=== PATIENT | female | born 1950 | race Caucasian/White ===

== ENCOUNTER 2017-11-08 18:51 | Emergency (ER) | payer OTHER, MEDICARE ==
[~2017-11-08] VITALS: Ht 165.1 cm; Wt 73.9 kg
[~2017-11-08 18:51] MED LIST: ALBU90OI6 INH; AMIT10 PO; AMLO10 PO; AMLO5 PO; ANASTROZOLE PO; ASCO500 PO; ASPI325 PO; ASPI81EC; ATEN50; ATEN50 PO; ATOR20 PO; ATOR40TA; ATOR40TA PO; BUPR150T2; CALCA500CH PO; CALCAVITD PO; CHOL10002 PO; CITA20 PO; CLOP75 PO; CYCL10; CYCL10 PO; ERGO50000 PO; ESCI10; ESCI10 PO; FISH1000 PO; FLUSAL2505 IH; HYDMOR4 PO; HYDMOR8 PO; IBAN2.5 PO; IBUP800; INDO25 PO; LEVO750 PO; LISI20; LISI20 PO; LORA.5 PO; METCAR500 PO; MIRT15; MIRT15 PO; MIRT15ST MM; MULVITA PO; MULVITB&C PO; OMEGA-3; ONDA4ODT MM; PREG50; PREG50 PO; Percocet 5-3251 EACH PO; Prednisone10 MG PO; RANO500T PO; TIOT18 INH
[2017-11-08] MEDS ORDERED: LISI20 PO (21:32)
[2017-11-08] MEDS ORDERED: DULO30 PO (21:32)
[2017-11-08] MEDS ORDERED: STIOLTO RESPIMAT4 GM INH (21:32)
[2017-11-08] MEDS ORDERED: ATOR20 PO (21:32)
[2017-11-08] MEDS ORDERED: PREG50 PO (21:33)
[2017-11-08] MEDS ORDERED: ATEN50 PO (21:33)
[2017-11-08] MEDS ORDERED: METCAR500 PO (21:33)
[2017-11-08] MEDS ORDERED: ANASTROZOLE5 GM (21:33)
[2017-11-08] MEDS ORDERED: ALBU90OI6 INH (21:34)
[2017-11-08] MEDS ORDERED: VARE1 PO (21:34)
== END 2017-11-08 21:19 | disposition home or self-care (01) ==
LOC: ER 18:51
DX: S16.1XXA Strain of muscle, fascia and tendon at neck level, initial encounter (principal); V89.2XXA Person injured in unspecified motor-vehicle accident, traffic, initial encounter; Z88.5 Allergy status to narcotic agent; Z79.899 Other long term (current) drug therapy; Z79.82 Long term (current) use of aspirin; I25.2 Old myocardial infarction; J44.9 Chronic obstructive pulmonary disease, unspecified; Z87.891 Personal history of nicotine dependence
CPT/HCPCS: 70450; 72100; 72125; 99284

== ENCOUNTER 2017-11-22 06:54 | Day surgery (SDC) | payer MEDICARE, OTHER ==
[~2017-11-22] VITALS: Ht 165.1 cm; Wt 74.1 kg
[~2017-11-22 06:54] MED LIST changes: +ANASTROZOLE5 GM; +DULO30 PO; +DULO60 PO; +MULTI VITAMIN1 EACH PO; +Nitrostat0.4 MG SL; +Percocet 7.5-31 EACH PO; +STIOLTO RESPIMAT4 GM INH; +VARE1 PO
[2017-11-22] MEDS ORDERED: CLOP75 PO (11:27)
== END 2017-11-22 14:00 | disposition home or self-care (01) ==
LOC: MHTC 06:54
PROC: 02703ZZ Dilation of Coronary Artery, One Artery, Percutaneous Approach (ICD-10-PCS; principal; 2017-11-22)
PROC: B240ZZ3 Ultrasonography of Single Coronary Artery, Intravascular (ICD-10-PCS; principal; 2017-11-22)
PROC: 027034Z Dilation of Coronary Artery, One Artery with Drug-eluting Intraluminal Device, Percutaneous Approach (ICD-10-PCS; principal; 2017-11-22)
DX: I25.110 Atherosclerotic heart disease of native coronary artery with unstable angina pectoris (principal); Z87.891 Personal history of nicotine dependence; E78.5 Hyperlipidemia, unspecified; I10 Essential (primary) hypertension; Z95.1 Presence of aortocoronary bypass graft
CPT/HCPCS: 85347; 92937; 92978; 93005; 93010; 93455; 99152; 99153; C1725; C1753; C1769; C1874; J1644; J2250; J2720; J3010; J7030; Q9967

== ENCOUNTER 2018-08-16 10:22 | Emergency (ER) | payer MEDICARE, OTHER ==
[~2018-08-16] VITALS: Ht 165.1 cm; Wt 69.8 kg
[2018-08-16 10:55] LABS: BASOPHILS ABSOLUTE AUTO 0.05 K/mm3 (0.00-0.23); BASOPHILS PERCENT AUTO 1 % (0-2); EOSINOPHILS ABSOLUTE AUTO 0.07 K/mm3 (0.00-0.68); EOSINOPHILS PERCENT AUTO 1 % (0-6); Hematocrit 45.5 % (33.0-51.0); Hemoglobin 15.4 g/dL (11.5-16.0); IMMATURE GRAN ABSOLUTE AUTO 0.02 K/mm3 (0.00-0.10); IMMATURE GRAN PERCENT AUTO 0 % (0-1); LYMPHOCYTES ABSOLUTE AUTO 1.87 K/mm3 (0.84-5.20); LYMPHOCYTES PERCENT AUTO 22 % (21-46); MONOCYTES ABSOLUTE AUTO 0.55 K/mm3 (0.16-1.47); MONOCYTES PERCENT AUTO 7 % (4-13); Mean Corpuscular HGB 31.9 pg (26.0-34.0); Mean Corpuscular HGB Conc 33.8 g/dL (31.5-36.5); Mean Corpuscular Volume 94 fL (80-100); NEUTROPHILS ABSOLUTE AUTO 5.77 K/mm3 (1.96-9.15); NEUTROPHILS PERCENT AUTO 69 % (41-73); Platelet Count 246 K/mm3 (150-400); RDW Coefficient Variation 11.7 % (11.7-14.2); RDW Standard Deviation 40.6 fL (35.1-46.3); Red Blood Cell Count 4.83 M/mm3 (3.80-5.20); White Blood Cell Count 8.33 K/mm3 (4.00-11.30)
[2018-08-16 11:13] LABS: Alanine Aminotransfer (ALT/SGP 19 U/L (12-78); Albumin/Globulin Ratio 1.1 (0.8-1.8); Alk Phos 72 U/L (50-136); Anion Gap 12 mmol/L (6-16); Aspartate Aminotrans (AST/SGOT 23 U/L (12-37); Bilirubin, Total 0.5 mg/dL (0.1-1.0); Blood Urea Nitrogen 11 mg/dL (8-24); CO2, Blood 20 mmol/L (21-32); Calcium, Blood 9.4 mg/dL (8.5-10.1); Chloride, Blood 107 mmol/L (98-108); Globulin, Blood 3.8 g/dL (2.2-4.0); Glomerular Filtration Rate >60 (60-); Glucose, Blood 193 mg/dL (70-99); Potassium, Blood 3.7 mmol/L (3.5-5.5); Sodium, Blood 139 mmol/L (136-145); Total Protein, Blood 7.8 g/dL (6.4-8.2)
[2018-08-16] MEDS ORDERED: Motion Sickness25 M1 PO (12:57)
[2018-08-16] MEDS ORDERED: ONDA4ODT MM (12:57)
== END 2018-08-16 13:15 | disposition home or self-care (01) ==
LOC: ER 10:22
PROVIDERS: Emergency Medicine
DX: H81.399 Other peripheral vertigo, unspecified ear (principal); Z88.5 Allergy status to narcotic agent; Z79.899 Other long term (current) drug therapy; Z79.82 Long term (current) use of aspirin; I25.2 Old myocardial infarction; J44.9 Chronic obstructive pulmonary disease, unspecified; I10 Essential (primary) hypertension; Z87.891 Personal history of nicotine dependence
CPT/HCPCS: 36415; 80053; 85025; 93005; 93010; 96372; 99284-25; J1885

== ENCOUNTER 2019-02-06 17:44 | Emergency (ER) | payer MEDICARE, OTHER ==
[~2019-02-06] VITALS: Ht 165.1 cm; Wt 67.6 kg
[~2019-02-06 17:44] MED LIST changes: +Motion Sickness25 M1 PO
[2019-02-06 18:40] LABS: BASOPHILS ABSOLUTE AUTO 0.07 K/mm3 (0.00-0.23); BASOPHILS PERCENT AUTO 1 % (0-2); EOSINOPHILS ABSOLUTE AUTO 0.15 K/mm3 (0.00-0.68); EOSINOPHILS PERCENT AUTO 2 % (0-6); Hematocrit 41.9 % (33.0-51.0); Hemoglobin 14.1 g/dL (11.5-16.0); IMMATURE GRAN ABSOLUTE AUTO 0.01 K/mm3 (0.00-0.10); IMMATURE GRAN PERCENT AUTO 0 % (0-1); LYMPHOCYTES ABSOLUTE AUTO 2.66 K/mm3 (0.84-5.20); LYMPHOCYTES PERCENT AUTO 32 % (21-46); MONOCYTES ABSOLUTE AUTO 0.86 K/mm3 (0.16-1.47); MONOCYTES PERCENT AUTO 10 % (4-13); Mean Corpuscular HGB 32.3 pg (26.0-34.0); Mean Corpuscular HGB Conc 33.7 g/dL (31.5-36.5); Mean Corpuscular Volume 96 fL (80-100); Mean Platelet Volume 10.7 fL (9.1-12.4); NEUTROPHILS ABSOLUTE AUTO 4.61 K/mm3 (1.96-9.15); NEUTROPHILS PERCENT AUTO 55 % (41-73); Platelet Count 209 K/mm3 (150-400); RDW Coefficient Variation 12.7 % (11.7-14.2); RDW Standard Deviation 45.2 fL (35.1-46.3); Red Blood Cell Count 4.36 M/mm3 (3.80-5.20); White Blood Cell Count 8.36 K/mm3 (4.00-11.30)
[2019-02-06 18:59] LABS: Alanine Aminotransfer (ALT/SGP 16 U/L (12-78); Albumin, Blood 3.9 g/dL (3.4-5.0); Albumin/Globulin Ratio 1.1 (0.8-1.8); Alk Phos 74 U/L (50-136); Anion Gap 4 mmol/L (6-16); Aspartate Aminotrans (AST/SGOT 22 U/L (12-37); Bilirubin, Total 0.3 mg/dL (0.1-1.0); Blood Urea Nitrogen 12 mg/dL (8-24); Bun/Creatinine Ratio 22.1 (12.0-20.0); CO2, Blood 27 mmol/L (21-32); Calcium, Blood 10.5 mg/dL (8.5-10.1); Chloride, Blood 111 mmol/L (98-108); Creatinine, Blood 0.54 mg/dL (0.40-1.00); Globulin, Blood 3.5 g/dL (2.2-4.0); Glomerular Filtration Rate >60 (60-); Glucose, Blood 122 mg/dL (70-99); Potassium, Blood 3.6 mmol/L (3.5-5.5); Sodium, Blood 142 mmol/L (136-145); Total Protein, Blood 7.4 g/dL (6.4-8.2)
[2019-02-06 20:24] LABS: Bilirubin, Urine Neg (Neg); Blood, Urine Neg (Neg); Glucose Qualitative, Urine Neg (Neg); Ketones, Urine Neg (Neg); Leukocyte Esterase, Urine 1+ (Neg); Nitrite, Urine Neg (Neg); Protein, Urine Neg (Neg); Source, Urine Clean Catch; Specific Gravity, Urine 1.015 (1.003-1.022); Urobilinogen, Urine NORM (Normal)
[2019-02-06 20:42] LABS: Appearance, Urine Hazy (Clear); Color, Urine Yellow (P-Yellow)
[2019-02-06 20:44] LABS: Amorphous Mod (0-Heavy); Bacteria Mod /hpf; Red Blood Cells, Urine Not Seen /hpf (0-2); Squamous Epithelial Cells Rare /hpf (Few)
== END 2019-02-06 22:40 | disposition home or self-care (01) ==
LOC: ER 17:44
PROVIDERS: Emergency Medicine
DX: K59.00 Constipation, unspecified (principal); J44.9 Chronic obstructive pulmonary disease, unspecified; I25.2 Old myocardial infarction; Z87.442 Personal history of urinary calculi; Z88.5 Allergy status to narcotic agent; Z79.899 Other long term (current) drug therapy; Z79.82 Long term (current) use of aspirin; Z79.02 Long term (current) use of antithrombotics/antiplatelets; Z85.3 Personal history of malignant neoplasm of breast; Z85.820 Personal history of malignant melanoma of skin; Z87.891 Personal history of nicotine dependence
CPT/HCPCS: 36415; 74176; 80053; 81001; 83690; 83735; 85025; 87086; 93005; 93010; 99284-25

== ENCOUNTER 2019-05-30 07:43 | Observation (INO) | payer MEDICARE, OTHER ==
[~2019-05-30] VITALS: Ht 165.1 cm; Wt 64.4 kg
[~2019-05-30 07:43] MED LIST changes: -DULO60 PO; -Percocet 7.5-31 EACH PO; -STIOLTO RESPIMAT4 GM INH
[2019-05-30 08:30] LABS: BASOPHILS ABSOLUTE AUTO 0.04 K/mm3 (0.00-0.23); BASOPHILS PERCENT AUTO 1 % (0-2); EOSINOPHILS ABSOLUTE AUTO 0.12 K/mm3 (0.00-0.68); EOSINOPHILS PERCENT AUTO 2 % (0-6); Hematocrit 40.4 % (33.0-51.0); Hemoglobin 13.1 g/dL (11.5-16.0); IMMATURE GRAN ABSOLUTE AUTO 0.02 K/mm3 (0.00-0.10); IMMATURE GRAN PERCENT AUTO 0 % (0-1); LYMPHOCYTES ABSOLUTE AUTO 1.13 K/mm3 (0.84-5.20); LYMPHOCYTES PERCENT AUTO 17 % (21-46); MONOCYTES ABSOLUTE AUTO 0.67 K/mm3 (0.16-1.47); MONOCYTES PERCENT AUTO 10 % (4-13); Mean Corpuscular HGB 31.8 pg (26.0-34.0); Mean Corpuscular HGB Conc 32.4 g/dL (31.5-36.5); Mean Corpuscular Volume 98 fL (80-100); Mean Platelet Volume 10.6 fL (9.1-12.4); NEUTROPHILS ABSOLUTE AUTO 4.87 K/mm3 (1.96-9.15); NEUTROPHILS PERCENT AUTO 71 % (41-73); Platelet Count 138 K/mm3 (150-400); RDW Coefficient Variation 12.2 % (11.7-14.2); RDW Standard Deviation 44.2 fL (35.1-46.3); Red Blood Cell Count 4.12 M/mm3 (3.80-5.20); White Blood Cell Count 6.85 K/mm3 (4.00-11.30)
[2019-05-30 08:51] LABS: Alanine Aminotransfer (ALT/SGP 13 U/L (12-78); Albumin, Blood 3.2 g/dL (3.4-5.0); Albumin/Globulin Ratio 0.8 (0.8-1.8); Alk Phos 72 U/L (50-136); Anion Gap 6 mmol/L (6-16); Aspartate Aminotrans (AST/SGOT 21 U/L (12-37); Bilirubin, Total 0.3 mg/dL (0.1-1.0); Blood Urea Nitrogen 9 mg/dL (8-24); Bun/Creatinine Ratio 17.9 (12.0-20.0); CO2, Blood 27 mmol/L (21-32); Calcium, Blood 8.4 mg/dL (8.5-10.1); Chloride, Blood 106 mmol/L (98-108); Globulin, Blood 3.8 g/dL (2.2-4.0); Glomerular Filtration Rate >60 (60-); Glucose, Blood 99 mg/dL (70-99); Potassium, Blood 3.4 mmol/L (3.5-5.5); Sodium, Blood 139 mmol/L (136-145); Troponin I <0.015 ng/mL (0.000-0.040)
[2019-05-30] MEDS ORDERED: AMLODIPINE BESYL5 MG PO (12:14)
[2019-05-30] MEDS ORDERED: Robaxin750 MG PO (12:15)
[2019-05-30] MEDS ORDERED: ATEN50 PO (12:16)
[2019-05-30] MEDS ORDERED: ALBU90OI6 INH (12:17)
[2019-05-30] MEDS ORDERED: CLOP75 PO (12:17)
[2019-05-30] MEDS ORDERED: PREG50 PO (12:18)
[2019-05-30] MEDS ORDERED: DULO30 PO (12:19)
[2019-05-30] MEDS ORDERED: LISI20 PO (12:20)
[2019-05-30] MEDS ORDERED: STIOLTO RESPIMAT4 GM INH (12:20)
[2019-05-30] MEDS ORDERED: ATOR20 PO (12:20)
[2019-05-30] MEDS ORDERED: Percocet 7.5-31 EACH PO (12:21)
[2019-05-30] MEDS ORDERED: ASPI325EC PO (12:27)
[2019-05-30 12:33] LABS: Influenza A Negative (NEGATIVE); Influenza B Negative (NEGATIVE)
--- NOTE | 2019-05-30 15:30 | NUR ---
PT ARRIVED TO ROOM FROM ED AND TRANSFERRED SELF TO BED. SOB WITH ACTIVITY BUT RECOVERS QUICKLY. SETTLED IN TO ROOM AND ORIENTED TO AREA. CALL BUTTON WITHIN REACH.
[2019-05-30 16:47] LABS: Adenovirus Not Detected (NOT DETECT); Bordetella pertussis Not Detected (NOT DETECT); Chlamydophila pneumoniae Not Detected (NOT DETECT); Coronavirus 229E Not Detected (NOT DETECT); Coronavirus HKU1 Not Detected (NOT DETECT); Coronavirus NL63 Not Detected (NOT DETECT); Coronavirus OC43 Not Detected (NOT DETECT); Human Metapneumovirus Not Detected (NOT DETECT); Human Rhinovirus/Enterovirus Not Detected (NOT DETECT); Influenza A Not Detected (NOT DETECT); Influenza A/2009-H1 Not Detected (NOT DETECT); Influenza A/H1 Detected (NOT DETECT); Influenza A/H3 Not Detected (NOT DETECT); Influenza B Not Detected (NOT DETECT); Mycoplasma pneumoniae Not Detected (NOT DETECT); Parainfluenza Virus 1 Not Detected (NOT DETECT); Parainfluenza Virus 2 Not Detected (NOT DETECT); Parainfluenza Virus 3 Not Detected (NOT DETECT); Parainfluenza Virus 4 Not Detected (NOT DETECT); Respiratory Syncytial Virus Not Detected (NOT DETECT)
--- NOTE | 2019-05-30 17:55 | NUR ---
SHIFT SUMMARY RESP PANEL CAME BACK WITH A POSITIVE FLU A. PLACED IN DROPLET ISOLATION. NOTIFIED MD OF TEST. HAS BEEN INDEPENDENT IN ROOM. O2 AT 2L/M CONTINUOUS. HAS A COUGH THAT ISN'T PRODUCING AT THIS TIME.
--- NOTE | 2019-05-31 04:17 | NUR ---
Shift Summary Patient slept well overnight. She did request medication for headaches and pain "all over" her body. She is A@O, maintaining O2 sats on 2L.
[2019-05-31 05:43] LABS: Anion Gap 2 mmol/L (6-16); Blood Urea Nitrogen 11 mg/dL (8-24); Bun/Creatinine Ratio 24.4 (12.0-20.0); CO2, Blood 29 mmol/L (21-32); Calcium, Blood 8.7 mg/dL (8.5-10.1); Chloride, Blood 108 mmol/L (98-108); Creatinine, Blood 0.45 mg/dL (0.40-1.00); Glomerular Filtration Rate >60 (60-); Glucose, Blood 158 mg/dL (70-99); Sodium, Blood 139 mmol/L (136-145)
--- NOTE | 2019-05-31 18:10 | NUR ---
PT ALERT, ORIENTED, AND COOPERATIVE WITH CARE THIS SHIFT. PT MEDICATED 2X FOR PAIN IN BACK AND NECK/HEAD. PT UP INDEPENDENTLY TO BATHROOM. PT SHOWERED INDEPENDENTLY THIS SHIFT. PT CONTINUES ON 2L O2 THROUGH THIS SHIFT. PT CURRENTLY SITTING UP IN BED EATING DINNER.
--- NOTE | 2019-06-01 07:29 | NUR ---
06/01/19 0600 SLEPT ON AND OFF. VITALS STABLE. MEDICATED FOR COUGH,MUSCLE PAIN AND BACK PAIN PER AUG. UNEVENTFUL NIGHT.
--- NOTE | 2019-06-01 17:22 | NUR ---
PT ALERT AND ORIENTED, COOPEREATIVE WITH CARE THROUGHOUT THIS SHIFT. PT INDEPENDENT IN THE ROOM AND UP TO THE BATHROOM. PT CONTINUES TO HAVE DIFFICULTY BREATHING WITH AMBULATION. PT'S DAUGHTER IN THE ROOM THIS AFTERNOON. PT CURRENTLY UP IN BED WITH DAUGHTER IN THE ROOM WATCHING TELEVISION. DENIES FURTHER NEEDS AT THIS TIME.
[2019-06-02 05:10] LABS: BASOPHILS ABSOLUTE AUTO 0.01 K/mm3 (0.00-0.23); BASOPHILS PERCENT AUTO 0 % (0-2); EOSINOPHILS PERCENT AUTO 0 % (0-6); Hematocrit 38.4 % (33.0-51.0); Hemoglobin 12.5 g/dL (11.5-16.0); IMMATURE GRAN ABSOLUTE AUTO 0.13 K/mm3 (0.00-0.10); IMMATURE GRAN PERCENT AUTO 1 % (0-1); LYMPHOCYTES ABSOLUTE AUTO 1.07 K/mm3 (0.84-5.20); LYMPHOCYTES PERCENT AUTO 6 % (21-46); MONOCYTES ABSOLUTE AUTO 0.68 K/mm3 (0.16-1.47); MONOCYTES PERCENT AUTO 4 % (4-13); Mean Corpuscular HGB 31.4 pg (26.0-34.0); Mean Corpuscular HGB Conc 32.6 g/dL (31.5-36.5); Mean Corpuscular Volume 97 fL (80-100); Mean Platelet Volume 10.4 fL (9.1-12.4); NEUTROPHILS ABSOLUTE AUTO 14.78 K/mm3 (1.96-9.15); NEUTROPHILS PERCENT AUTO 89 % (41-73); Platelet Count 165 K/mm3 (150-400); RDW Standard Deviation 42.7 fL (35.1-46.3); Red Blood Cell Count 3.98 M/mm3 (3.80-5.20); White Blood Cell Count 16.67 K/mm3 (4.00-11.30)
[2019-06-02 05:26] LABS: Alanine Aminotransfer (ALT/SGP 21 U/L (12-78); Albumin/Globulin Ratio 0.9 (0.8-1.8); Alk Phos 69 U/L (50-136); Anion Gap 5 mmol/L (6-16); Aspartate Aminotrans (AST/SGOT 19 U/L (12-37); Bilirubin, Total 0.2 mg/dL (0.1-1.0); Blood Urea Nitrogen 17 mg/dL (8-24); CO2, Blood 31 mmol/L (21-32); Calcium, Blood 8.5 mg/dL (8.5-10.1); Chloride, Blood 105 mmol/L (98-108); Creatinine, Blood 0.42 mg/dL (0.40-1.00); Globulin, Blood 3.5 g/dL (2.2-4.0); Glomerular Filtration Rate >60 (60-); Glucose, Blood 154 mg/dL (70-99); Potassium, Blood 3.4 mmol/L (3.5-5.5); Sodium, Blood 141 mmol/L (136-145); Total Protein, Blood 6.5 g/dL (6.4-8.2)
--- NOTE | 2019-06-02 06:21 | NUR ---
SHIFT SUMMARY PATIENT ALERT AND ORIENTED OVERNIGHT. HAD COMPLAINTS OF NECK AND BACK PAIN, RECEIVED TWO DOSES OF PRN PERCOCET WHICH WERE EFFECTIVE IN HELPING HER GET SOME SLEEP. PATIENT IS CURRENTLY ON 2 LITERS O2 VIA NASAL CANULA. IV PATENT AND FLUSHED. BED IN LOWEST POSITION WITH WHEELS LOCKED. CALL LIGHT WITHIN REACH. REPORT GIVEN TO ONCOMING RN.
--- NOTE | 2019-06-02 17:26 | NUR ---
Shift Summary A/O x 4, pleasant and cooperative. Patient has been independent in room and to the bathroom. Calls appropriately, medicated for pain x 2. Denies SOB, dyspnea, nausea. No other complaints or acute concerns at this time.
--- NOTE | 2019-06-02 17:55 | NUR ---
Chest pressure Pt c/o chest pressure, notified Dr. Corral. Orders for EKG received.
--- NOTE | 2019-06-03 04:14 | NUR ---
SHIFT SUMMARY ADMIT FOR COPD EXACERBATION AND INFLUENZA A. DROPLET/CONTACT PRECAUTIONS FOR FLU. 2 LPM VIA NC AM & PM HERE, 2 LPM @ PM ONLY IS BASELINE AT HOME. TAMIFLU IS SCHEDULED. HX: CHRONIC BACK PAIN (PERCOCET & ROBAXIN IN EMAR), COPD, LEFT BREAST CANCER, CAD W/2 STENTS. A&O X4. INDEPENDENT IN ROOM. CARDIAC DIET.
[2019-06-03 04:46] LABS: BASOPHILS ABSOLUTE AUTO 0.02 K/mm3 (0.00-0.23); BASOPHILS PERCENT AUTO 0 % (0-2); EOSINOPHILS PERCENT AUTO 0 % (0-6); Hematocrit 38.4 % (33.0-51.0); Hemoglobin 12.7 g/dL (11.5-16.0); IMMATURE GRAN ABSOLUTE AUTO 0.17 K/mm3 (0.00-0.10); IMMATURE GRAN PERCENT AUTO 1 % (0-1); LYMPHOCYTES ABSOLUTE AUTO 1.34 K/mm3 (0.84-5.20); LYMPHOCYTES PERCENT AUTO 9 % (21-46); MONOCYTES ABSOLUTE AUTO 0.67 K/mm3 (0.16-1.47); MONOCYTES PERCENT AUTO 5 % (4-13); Mean Corpuscular HGB 31.5 pg (26.0-34.0); Mean Corpuscular HGB Conc 33.1 g/dL (31.5-36.5); Mean Corpuscular Volume 95 fL (80-100); Mean Platelet Volume 10.2 fL (9.1-12.4); NEUTROPHILS ABSOLUTE AUTO 12.46 K/mm3 (1.96-9.15); NEUTROPHILS PERCENT AUTO 85 % (41-73); Platelet Count 182 K/mm3 (150-400); RDW Coefficient Variation 11.9 % (11.7-14.2); RDW Standard Deviation 41.7 fL (35.1-46.3); Red Blood Cell Count 4.03 M/mm3 (3.80-5.20); White Blood Cell Count 14.66 K/mm3 (4.00-11.30)
[2019-06-03 05:05] LABS: Anion Gap 5 mmol/L (6-16); Blood Urea Nitrogen 17 mg/dL (8-24); Bun/Creatinine Ratio 41.9 (12.0-20.0); CO2, Blood 31 mmol/L (21-32); Calcium, Blood 8.6 mg/dL (8.5-10.1); Chloride, Blood 104 mmol/L (98-108); Creatinine, Blood 0.41 mg/dL (0.40-1.00); Glomerular Filtration Rate >60 (60-); Glucose, Blood 153 mg/dL (70-99); Potassium, Blood 3.6 mmol/L (3.5-5.5); Sodium, Blood 140 mmol/L (136-145)
--- NOTE | 2019-06-03 17:54 | NUR ---
PATIENT IS ALERT AND ORIENTED AND COOPERATIVE WITH CARE. SHE MAKES HER NEEDS KNOWN. COMPLAINS OF BACK PAIN, TREATED PER EMAR. HER LUNGS SOUND WHEEZY. LIKES CHOCOLATE ENSURES. INDEPENDENT IN ROOM. WILL CONTINUE TO MONITOR.
--- NOTE | 2019-06-04 02:57 | NUR ---
Droplet precautions maintained. Resp treatments and medications given. Affect cheerful. Resting quietly at this time. Will monitor. Call light in reach.
--- NOTE | 2019-06-04 18:37 | NUR ---
SHIFT SUMMARY- PT HAS HAD NO ACUTE CHANGES T/O THE SHIFT. COMPLETED 5 DAY COURSE OF TAMIFLU THIS MOORNING. PT STATES SHE DOES NOT FEEL LIKE SHE HAS IMPROVED. LUNGS STILL EXP WHEEZE T/O. RT ON BOARD FOR Tx. PT ON 2L VIA NC, THIS IS HER HOME DOSE OF O2. SPOKE TO TO CLARIFY MUCINEX ORDER PT TO NOW RECIEVE 1200MG OF MUCINEX BID. PT STILL ON IV SOLUMEDROL QID. PT DOES SEEM TO BE A BIT BRIGHTER THIS EVENING AND ACTUALLY LAUGHED AT A JOKE WITH STAFF. (SHE DIDN'T FEEL LIKE LAUGHING THIS MORNING). PT IS VERY CONCERNED ABOUT HER [facility], APPARENTLY SHE WAS JUST IN THE HOSPITAL FOR THE SAME REASON AND SHE IS NOT DOING WELL NOW. WILL OFFER PASTORAL CARE TOMORROW IF THE ISSUE PERSISTS.
--- NOTE | 2019-06-05 17:34 | NUR ---
SHIFT SUMMARY- PT HAS HAD A CHRONIC HEADACHE T/O THE DAY. PAIN MANAGEMENT MEDS WELL PRN TYLENOL DON'T SEEM TO BE HELPING TODAY, HOWEVER THE PT HAS ALSO BEEN VERY EMOTIONAL TODAY REMEMBERING LOST LOVED ONES. CALLED SPIRITUAL CARE. PT WAS VISITED BY AMANDA FROM SPIRITUAL CARE TEAM. PT STATED AFTER THAT SHE FELT "SO MUCH BETTER (EMOTIONALY) AFTER TALKING TO HER." PT SOLUMEDROL WAS DC'D AND CHANGED TO PO PREDNISONE, POSSIBLE DISCHARGE EARLY TOMORROW.
--- NOTE | 2019-06-05 18:29 | NUR ---
Per RN request, I visited Silvia who was tearful and actively grieving numerous, tragic losses. She responded well to emotional normalization and gentle bereavement associate professor of counseling. Prayer for healing and peace provided. We had an easy rapport and she responded well to these interventions. [employer] will remain available.
--- NOTE | 2019-06-06 05:26 | NUR ---
BUFFERER SUMMARY PT A/O X4. APPEARS TO HAVE SLEPT WELL TONIGHT. INDEPENDENT IN ROOM. EXP WHEEZING THROUGHOUT LUNG NATH. CURRENTLY ON 2 L O2 NASAL CANNULA. PT COMPLAINED OF HEADACHE. MEDICATED 2X FOR PAIN TO WHICH PT HAS RESPONDED IT HAS HELPED. NO ACUTE CHANGES. WILL CONTINUTE TO MONITOR.
[2019-06-06] MEDS ORDERED: BUDE.25 NEB (11:38)
[2019-06-06] MEDS ORDERED: GUAI600T33 PO (11:39)
[2019-06-06] MEDS ORDERED: Prednisone10 MG PO (11:41)
--- NOTE | 2019-06-06 13:48 | NUR ---
Patient is sitting up in bed and alert. Patient immediately shares about the loss of her 22 year old granddaughter who was murdered, about her painful divorce, and about her 50 plus year addiction to cigarettes. Patient also shares about her spiritual journey and where she would like to see her life headed in the future. I listen empathically, reinforce helpful attitudes and practices, and provide grief support, pastoral guidance and prayer. Patient is tearful during the prayer but voices appreciation for the "talk" and the prayer stating that it was "just what she needed. I will continue to remain available to patient and family.
--- NOTE | 2019-06-06 16:00 | NUR ---
DISCHARGE DISCHARGE MEDICATIONS AND INSTRUCTIONS EXPLAINED TO PATIENT. PATIENT STATED UNDERSTANDING. FOLLOW UP WITH PCP SCHEDULED. IV REMOVED WITHOUT DIFFICULTY. BELONGINGS WITH PATIENT. PATIENT TRANSFERED TO PRIVATE VEHICLE VIA WHEELCHAIR.
== END 2019-06-06 16:00 | disposition home or self-care (01) ==
LOC: ER 07:43 → MEDS 07:44
PROVIDERS: Emergency Medicine; Internal Medicine; Physician Assistant; ADMIT Family Medicine
DX: J44.1 Chronic obstructive pulmonary disease with (acute) exacerbation (principal); J96.01 Acute respiratory failure with hypoxia; J11.1 Influenza due to unidentified influenza virus with other respiratory manifestations; F17.210 Nicotine dependence, cigarettes, uncomplicated; I10 Essential (primary) hypertension; G43.909 Migraine, unspecified, not intractable, without status migrainosus; G89.29 Other chronic pain; M54.9 Dorsalgia, unspecified; E87.6 Hypokalemia; I25.10 Atherosclerotic heart disease of native coronary artery without angina pectoris; Z99.81 Dependence on supplemental oxygen; Z95.1 Presence of aortocoronary bypass graft; Z90.710 Acquired absence of both cervix and uterus; Z85.3 Personal history of malignant neoplasm of breast; Z88.5 Allergy status to narcotic agent; Z79.82 Long term (current) use of aspirin; Z79.51 Long term (current) use of inhaled steroids; Z79.02 Long term (current) use of antithrombotics/antiplatelets; Z79.899 Other long term (current) drug therapy
CPT/HCPCS: 0099U; 36415; 71046; 80048; 80053; 83880; 84484; 85025; 87804; 93005; 93010; 94640; 94644; 94664; 94667; 94760; 94761; 96365; 96366; 96372; 96375; 96376; 98960; 99285-25; 99407; A9270; A9270-GY; G0378; J0696; J1650; J1885; J2405; J2930; J7512

== ENCOUNTER 2019-06-13 16:41 | Inpatient (IN) | payer MEDICARE, OTHER ==
[~2019-06-13] VITALS: Ht 165.1 cm; Wt 64.9 kg
[~2019-06-13 16:41] MED LIST changes: +AMLODIPINE BESYL5 MG PO; +ASPI325EC PO; +BUDE.25 NEB; +GUAI600T33 PO; +Percocet 7.5-31 EACH PO; +Robaxin750 MG PO; +STIOLTO RESPIMAT4 GM INH
[2019-06-13 18:06] LABS: BASOPHILS ABSOLUTE AUTO 0.02 K/mm3 (0.00-0.23); BASOPHILS PERCENT AUTO 0 % (0-2); EOSINOPHILS ABSOLUTE AUTO 0.03 K/mm3 (0.00-0.68); EOSINOPHILS PERCENT AUTO 0 % (0-6); Mean Corpuscular HGB 31.7 pg (26.0-34.0); Mean Corpuscular HGB Conc 32.3 g/dL (31.5-36.5); RDW Coefficient Variation 13.1 % (11.7-14.2)
[2019-06-13 18:11] LABS: Hematocrit 37.5 % (33.0-51.0); Hemoglobin 12.1 g/dL (11.5-16.0); IMMATURE GRAN ABSOLUTE AUTO 0.08 K/mm3 (0.00-0.10); IMMATURE GRAN PERCENT AUTO 1 % (0-1); LYMPHOCYTES ABSOLUTE AUTO 1.06 K/mm3 (0.84-5.20); LYMPHOCYTES PERCENT AUTO 7 % (21-46); MONOCYTES ABSOLUTE AUTO 0.63 K/mm3 (0.16-1.47); MONOCYTES PERCENT AUTO 4 % (4-13); Mean Platelet Volume 9.4 fL (9.1-12.4); NEUTROPHILS ABSOLUTE AUTO 14.04 K/mm3 (1.96-9.15); NEUTROPHILS PERCENT AUTO 89 % (41-73); Platelet Count 284 K/mm3 (150-400); RDW Standard Deviation 46.5 fL (35.1-46.3); Red Blood Cell Count 3.82 M/mm3 (3.80-5.20); White Blood Cell Count 15.86 K/mm3 (4.00-11.30)
[2019-06-13 18:14] LABS: Mean Corpuscular Volume 98 fL (80-100)
[2019-06-13 18:25] LABS: Alanine Aminotransfer (ALT/SGP 46 U/L (12-78); Albumin, Blood 2.8 g/dL (3.4-5.0); Albumin/Globulin Ratio 0.7 (0.8-1.8); Alk Phos 82 U/L (50-136); Anion Gap 6 mmol/L (6-16); Aspartate Aminotrans (AST/SGOT 21 U/L (12-37); Bilirubin, Total 0.4 mg/dL (0.1-1.0); Blood Urea Nitrogen 26 mg/dL (8-24); Bun/Creatinine Ratio 43.7 (12.0-20.0); CO2, Blood 27 mmol/L (21-32); Calcium, Blood 8.9 mg/dL (8.5-10.1); Chloride, Blood 108 mmol/L (98-108); Glomerular Filtration Rate >60 (60-); Glucose, Blood 127 mg/dL (70-99); Potassium, Blood 3.9 mmol/L (3.5-5.5); Sodium, Blood 141 mmol/L (136-145); Total Protein, Blood 6.8 g/dL (6.4-8.2)
[2019-06-13 22:03] LABS: Magnesium, Blood 2.1 mg/dL (1.6-2.4)
[2019-06-13 22:26] LABS: Troponin I <0.015 ng/mL (0.000-0.040)
[2019-06-13] MEDS ORDERED: NICO21TP TOP (23:49)
--- NOTE | 2019-06-14 03:21 | NUR ---
CALLED HOSPITALIST INFORMED BY PCU SEISMOLOGY TECHNICAL OFFICER THAT PT IS IN BIGEMINY W/PVC'S FREQUENTLY, THIS IS A CHANGE SINCE PT WAS ADMITTED. HOSPITALIST ORDERED A DOSE OF ATENELOL NOW PT STATED SHE HAS NOT HAD ANY OF HER MEDS TODAY.
--- NOTE | 2019-06-14 04:13 | NUR ---
PCU CODING EDUCATOR REPORT I CALLED PCU CODING EDUCATOR FOLLOWING ADMINISTRATION OF ATENELOL. PT'S HR IS NOW NSR @ 95 BPM W/PVC'S.
--- NOTE | 2019-06-14 04:46 | NUR ---
SHIFT SUMMARY ADMITTED FOR COPD EXACERBATION. FULL CODE. REFUSED SCD'S. DURING THIS SHIFT PT EXPERIENCE FREQUENT BIGEMINY W/PVC'S. HOSPITALIST WAS CALLED & ORDERED MORNING DOSE OF ATENELOL GIVEN DURING THIS SHIFT. TELEMETRY IS MONITORING AND REPORTED NSR @ 95 BPM W/PVC'S FOLLOWING THAT DOSE. PT IS ON 2 LPM O2 AT NIGHT - BASELINE AT HOME. SHE REPORTS THAT SHE HAS BEEN HAVING TO USE O2 DURING DAY WELL LATELY. REGULAR DIET. HX: COPD, HTN, BREAST CANCER, MIGRAINES, CABG X2, PCI W/STENTS, CHRONIC BACK PAIN, RECENTLY QUIT SMOKING. RECENT ADMISSION DX: INFLUENZA B.
--- NOTE | 2019-06-14 05:02 | NUR ---
ATENELOL DAILY PT IS ON ATENELOL 50 MG DAILY. THIS MEDICATION WAS ACCIDENTALY DC'D WHEN I ALSO REQUIRED A NOW DOSE FOR ABNORMAL HR. WE DO WANT TO STILL GIVE THE DAILY DOSE, HOLDING THIS MORNING'S DOSE ONLY.
[2019-06-14 05:48] LABS: BASOPHILS ABSOLUTE AUTO 0.02 K/mm3 (0.00-0.23); BASOPHILS PERCENT AUTO 0 % (0-2); EOSINOPHILS PERCENT AUTO 0 % (0-6); Hematocrit 35.3 % (33.0-51.0); Hemoglobin 11.1 g/dL (11.5-16.0); IMMATURE GRAN ABSOLUTE AUTO 0.07 K/mm3 (0.00-0.10); IMMATURE GRAN PERCENT AUTO 1 % (0-1); LYMPHOCYTES PERCENT AUTO 4 % (21-46); MONOCYTES ABSOLUTE AUTO 0.16 K/mm3 (0.16-1.47); MONOCYTES PERCENT AUTO 1 % (4-13); Mean Corpuscular HGB 31.2 pg (26.0-34.0); Mean Corpuscular HGB Conc 31.4 g/dL (31.5-36.5); Mean Corpuscular Volume 99 fL (80-100); Mean Platelet Volume 9.7 fL (9.1-12.4); NEUTROPHILS ABSOLUTE AUTO 12.07 K/mm3 (1.96-9.15); NEUTROPHILS PERCENT AUTO 94 % (41-73); Platelet Count 251 K/mm3 (150-400); RDW Standard Deviation 46.4 fL (35.1-46.3); Red Blood Cell Count 3.56 M/mm3 (3.80-5.20); White Blood Cell Count 12.82 K/mm3 (4.00-11.30)
[2019-06-14 06:01] LABS: Anion Gap 8 mmol/L (6-16); Blood Urea Nitrogen 26 mg/dL (8-24); Bun/Creatinine Ratio 50.1 (12.0-20.0); CO2, Blood 26 mmol/L (21-32); Calcium, Blood 8.6 mg/dL (8.5-10.1); Chloride, Blood 107 mmol/L (98-108); Creatinine, Blood 0.52 mg/dL (0.40-1.00); Glomerular Filtration Rate >60 (60-); Glucose, Blood 220 mg/dL (70-99); Potassium, Blood 3.7 mmol/L (3.5-5.5); Sodium, Blood 141 mmol/L (136-145)
--- NOTE | 2019-06-14 15:08 | NUR ---
SHIFT SUMMARY PT HAS BEEN A/O X 4 WITH C/O GENERAL PAIN THIS MORNING, MEDS WERE GIVEN ORDERED AND EFFECTIVE. PT HAS DYSPNEA WITH EXERTION AND COARSE LUNG SOUNDS BUT IS NOT IN DISTRESS. PT REMAINS IN 2LPM VIA N.C. WITH HOB ELEVATED. IV FLUIDS RAN AND COMPLETED ORDERED WITH NO ISSUE. PT IS X 1 ASSIST TO THE TOILET. SHE IS ABLE TO MAKE HER NEEDS KNOWN AND USES THE CALL LIGHT FOR HELP WHEN NEEDED.
[2019-06-14 18:42] LABS: Adenovirus Not Detected (NOT DETECT); Bordetella pertussis Not Detected (NOT DETECT); Chlamydophila pneumoniae Not Detected (NOT DETECT); Coronavirus 229E Not Detected (NOT DETECT); Coronavirus HKU1 Not Detected (NOT DETECT); Coronavirus NL63 Not Detected (NOT DETECT); Coronavirus OC43 Not Detected (NOT DETECT); Human Metapneumovirus Not Detected (NOT DETECT); Human Rhinovirus/Enterovirus Not Detected (NOT DETECT); Influenza A Detected (NOT DETECT); Influenza A/2009-H1 Detected (NOT DETECT); Influenza A/H1 Not Detected (NOT DETECT); Influenza A/H3 Not Detected (NOT DETECT); Influenza B Not Detected (NOT DETECT); Mycoplasma pneumoniae Not Detected (NOT DETECT); Parainfluenza Virus 1 Not Detected (NOT DETECT); Parainfluenza Virus 2 Not Detected (NOT DETECT); Parainfluenza Virus 3 Not Detected (NOT DETECT); Parainfluenza Virus 4 Not Detected (NOT DETECT); Respiratory Syncytial Virus Not Detected (NOT DETECT)
--- NOTE | 2019-06-14 19:21 | NUR ---
RESP. PANEL RESULTS NOTED THIS PT IS POSITIVE FOR INFLUENZA A VIRUS. I AM PUTTING THIS PT IN DROPLET CONTACT PRECAUTIONS.
[2019-06-15 04:50] LABS: Albumin, Blood 2.6 g/dL (3.4-5.0); Anion Gap 6 mmol/L (6-16); Blood Urea Nitrogen 23 mg/dL (8-24); Bun/Creatinine Ratio 44.4 (12.0-20.0); CO2, Blood 26 mmol/L (21-32); Calcium, Blood 8.6 mg/dL (8.5-10.1); Chloride, Blood 108 mmol/L (98-108); Creatinine, Blood 0.52 mg/dL (0.40-1.00); Glomerular Filtration Rate >60 (60-); Glucose, Blood 171 mg/dL (70-99); Phosphorus, Blood 3.2 mg/dL (2.5-4.9); Sodium, Blood 140 mmol/L (136-145)
--- NOTE | 2019-06-15 05:00 | NUR ---
SHIFT SUMMARY DIAGNOSED W/COPD EXACERBATION. POSITIVE FOR INFLUENZA A. FULL CODE. CONTACT/DROPLET PRECAUTIONS FOR FLU. TELEMETRY IS MONITORING. PCU PRECISION LATHE OPERATOR REPORTS NSR W/PVC'S @ 85 BPM. PERCOCET IN EMAR FOR CHRONIC BACK PAIN. COARSE WHEEZY LUNG SOUNDS. LOVENOX FOR DVT PROPHYLAXIS. REGULAR DIET. HX: HTN, CABG X2, PCI W/STENTS, COPD, BREAST CANCER. A&O X4, INDEPENDENT IN ROOM, BASELINE IS 2 LPM O2 @ NIGHT.
--- NOTE | 2019-06-15 16:50 | NUR ---
SUMMARY- PT A/O X3, INDEPENDANT IN ROOM UP TO THE BATHROOM. TOLERATES ACT FAIR WITH MOD DYSPNEA UPON EXERTION. O2 2L/NC, LUNGS CRACKLES IN BASES, AT TIMES A COARSE EXP WHEEZE, NEB TX ROUTINE ARE HELPFUL. OCC COUGH, MIN SECRETIONS, THICK STRINGY CARABALLO TO BROWN. ENCOURAGED TO DRINK A LOT OF FLUIDS. TOLERATING ALL MEALS. STATES SEVERE BACK AND BODY ACHE, CHRONIC, MEDICATED WITH PER RX WITH STATED MIN TO NO REIEIF- STATES SHE'S JUST USED TO DEALING WITH CHRONIC PAIN.
--- NOTE | 2019-06-16 06:28 | NUR ---
SHIFT SUMMARY- PT. A&O, INDEP. ON 2L NC, HAS SOME SOB W/EXERTION AND OCCASIONAL COUGH. PT. C/O GENERALIZED CHRONIC BODY PAIN. MEDICATED PER EMAR. PT. STATES NOT MUCH PAIN RELIEF W/CURRENT PAIN MED REGIMEN. PT. SLEPT WELL DURING THE NIGHT, NO APPARENT DISTRESS NOTED. CALL LIGHT WITHIN REACH AND SIDE RAILS UP X2. WILL CONT TO MONITOR.
--- NOTE | 2019-06-16 14:45 | NUR ---
Patient is sitting up in bed and alert. Patient tells me about her medical issues and her new diagnosis and the fears she has regarding this news. I listen empathically, recite inspirational scriptures, normalize patient's experience, provide pastoral personal financial counselor and prayer. Patient responds well and displays evidence of reduced stress. I will continue to remain available to patient and family.
--- NOTE | 2019-06-16 18:15 | NUR ---
Shift Summary A/Ox4. Pleasant and cooperative, calls appropriately. Medicated for pain x 1, headache x 1 per EMAR. No other complaints. Up in room independently and to the bathroom for most of the day. No acute changes at this time.
--- NOTE | 2019-06-16 19:20 | NUR ---
PT/OT ORDERS Per Dr. Beavers, PT/OT ordered.
--- NOTE | 2019-06-16 19:32 | NUR ---
CHERRIE IS RESTING IN BED STATE SHE HAS A HEADACHE THAT HAS BEEN BOTHERING HER. PAIN IS 8/10 WHICH INCLUDES PAIN IN HER BACK FROM FLU. INFORMED HER WILL CHECK THE MAR TO SEE WHEN HER PAIN MED IS DUE AND GIVE IT. LUNG SOUNDS ARE EXPIRTORY WHEEZES THROUGHOUT. NON-PRODUCTIVE COUGH NOTED. STATES NO MATTER WHAT SHE DOES SHE IS UNABLE TO GET ANYTHING OUT. WAS HERE LAST WEEK FOR INFLUENZA B AND WAS SENT HOME AND NOT ABLE TO COUGH ANYTHING OUT AND CAME BACK WITH INFLUENZA A. SHE IS HOPEING THEY KEEP HER AND NOT DISCHARGE HER SHE LIVES ALONE AND DOES NOT WANT TO GO HOME AND GET WORSE AGAIN. INFORMED HER TO TALK TO THE DOCTOR ABOUT THIS. CALL LIGHT IN REACH.
--- NOTE | 2019-06-17 05:25 | NUR ---
SHIFT SUMMARY: CHERRIE SLEPT OFF AND ON THROUGHOUT THE NIGHT. SHE ONLY GOT UP TO VOID PRN. PAIN WAS MANAGED VIA PERCOCET AND TYLENOL. SHE CONTINUED TO HAVE BACK PAIN RELATED TO FLU AND CONGESTION, AND A HEADACHE THAT WOULD NOT SUBSIDE. VS HAVE BEEN STABLE, SATS REMAINED IN THE 90'S ON 2 LITERS OF O2. SHE HAS BEEN INDEPENDANT IN THE ROOM. STILL NO COUGH PRODUCTION NOTED. SHE VERBALIZED FEAR OF GOING HOME AND GETTING WORSE AGAIN AND WOULD LIKE TO STAY IN THE HOSPITAL TILL SHE IS FEELING BETTER. WILL PASS THIS ON TO DAY SHIFT. SHE HAD NO OTHER ACUTE CHANGES THIS SHIFT. CALL LIGHT REMAINED IN REACH AND USED APPROPRIATLY.
[2019-06-17 05:32] LABS: Albumin, Blood 2.6 g/dL (3.4-5.0); Anion Gap 6 mmol/L (6-16); Blood Urea Nitrogen 23 mg/dL (8-24); Bun/Creatinine Ratio 41.6 (12.0-20.0); CO2, Blood 27 mmol/L (21-32); Calcium, Blood 8.4 mg/dL (8.5-10.1); Chloride, Blood 109 mmol/L (98-108); Creatinine, Blood 0.55 mg/dL (0.40-1.00); Glomerular Filtration Rate >60 (60-); Glucose, Blood 99 mg/dL (70-99); Phosphorus, Blood 3.1 mg/dL (2.5-4.9); Potassium, Blood 3.7 mmol/L (3.5-5.5); Sodium, Blood 142 mmol/L (136-145)
--- NOTE | 2019-06-17 19:21 | NUR ---
Shift Summary A/Ox 4, patient has been up in room and chair for most meals. Medicated for pain x 2 with good results. Pt c/o migraine for which has slowly resolved throughout the day. No acute concerns at this time.
--- NOTE | 2019-06-17 21:35 | NUR ---
CHERRIE WAS IN THE MIDDLE OF BREATHING TREATMENT WHEN FIRST CHECKED ON HER. THEN WHEN BACK TO THE ROOM. SHE WAS SITTING UP IN BED WATCHING TV. SHE HAS BEEN GETTING UP TO THE CHAIR MORE FREQUENT SHE STATES. AND STATES THEY TOLD HER SHE NO LONGER HAS THE FLU, JUST HER COPD THAT IS EXACERBATED AND THEY PLAN ON SENDING HER HOME TOMORROW. ENCOURAGED HER TO CONTINUE TO DO HER BREATHING EXERCISES SEVERAL TIMES A DAY, SHE SAID SHE WOULD. LUNG SOUNDS ARE STILL WHEEZES COURSE SOUNDING. COUGH STILL NON-PRODUCTIVE. ON 2 LITERS OF O2 SATS IN THE 90'S. INDEPENDANT IN THE ROOM. CALL LIGHT IN REACH.
--- NOTE | 2019-06-18 05:56 | NUR ---
SHIFT SUMMARY: CHERRIE VS HAVE REMAINED STABLE. LUNG SOUNDS ARE COURSE WITH EXPIRTORY WHEEZES. NON-PRODUCTIVE COUGH. IMPROVED SOB WITH EXERTION. SATS REMAIN IN THE 90'S ON 2 LITERS OF O2. APPETITE IS GOOD. PAIN HAS IMPROVED ONLY MEDICATED HER X1 TONIGHT. INDEPENDANT IN THE ROOM. PLAN IS FOR HER TO GO HOME TODAY. ENCOURAGED HER TO USE HER BREATHING EXERCISES SEVERAL TIMES A DAY AT HOME, STATES SHE WILL DO. NO OTHER ACUTE CHANGES OCCURED THIS SHIFT. CALL LIGHT REMAINED IN REACH.
[2019-06-18] MEDS ORDERED: PREG50 PO (09:44)
[2019-06-18] MEDS ORDERED: PRED (09:50)
[2019-06-18] MEDS ORDERED: OSEL75CA PO (09:52)
[2019-06-18] MEDS ORDERED: NYST100000 (09:54)
[2019-06-18] MEDS ORDERED: AZIT500 PO (09:57)
[2019-06-18] MEDS ORDERED: DULO30 PO (09:59)
[2019-06-18] MEDS ORDERED: AMLO5 PO (10:10)
--- NOTE | 2019-06-18 16:18 | NUR ---
PATIENT DISCHARGE: PATIENT DISCHARGED TO HOME/ XFR TO HOME HEALTH THIS SHIFT. MEDICATION RECONCILIATION COMPLETED; MED LIST FAXED TO [facility]. DISCHARGE EDUCATION COMPLETED WITH PATIENT. PATIENT TRANSPORTED TO EXIT BY [facility] WITH WHEELCHAIR AT 1545. PATIENT DEPARTED [facility] VIA PRIVATE AUTO.
== END 2019-06-18 15:45 | disposition home health service (06) | DRG 191 ==
LOC: ER 16:41 → MEDS 16:42 → ENPENDDIS 06-18 13:29 → MEDS 06-18 15:45
PROVIDERS: Internal Medicine; Nurse Practitioner Acute Care; Physician Assistant; ADMIT Hospitalist
DX: J44.1 Chronic obstructive pulmonary disease with (acute) exacerbation (principal); B37.0 Candidal stomatitis; I25.10 Atherosclerotic heart disease of native coronary artery without angina pectoris; G43.909 Migraine, unspecified, not intractable, without status migrainosus; I10 Essential (primary) hypertension; Z95.1 Presence of aortocoronary bypass graft; F17.210 Nicotine dependence, cigarettes, uncomplicated; Z79.82 Long term (current) use of aspirin; Z99.81 Dependence on supplemental oxygen; J10.1 Influenza due to other identified influenza virus with other respiratory manifestations; G47.33 Obstructive sleep apnea (adult) (pediatric); G89.4 Chronic pain syndrome
CPT/HCPCS: 0099U; 36415; 71046; 80048; 80053; 80069; 82947; 83735; 83880; 84484; 85025; 93005; 93010; 94640; 94645; 94667; 94760; 94761; 96372; 96374; 96376; 97110; 97161; 97165; 97530; 97535; 98960; 99285-25; A9270; A9270-GY; G0378; J1650; J2920; J2930; J7030; J7512

== ENCOUNTER 2020-05-28 17:43 | Emergency (ER) | payer MEDICARE, OTHER ==
[~2020-05-28] VITALS: Ht 165.1 cm; Wt 65.8 kg
[~2020-05-28 17:43] MED LIST changes: +AZIT500 PO; +NICO21TP TOP; +NYST100000; +OSEL75CA PO; +PRED
[2020-05-28] MEDS ORDERED: DULOXETINE HCL60 M1 PO (18:08)
[2020-05-28] MEDS ORDERED: OXYC10TA19 PO (18:09)
[2020-05-28] MEDS ORDERED: ZYPREXA2.5 MG PO (18:09)
[2020-05-28] MEDS ORDERED: AMLODIPINE BESYL5 MG PO (18:10)
[2020-05-28] MEDS ORDERED: LEVOFLOXACIN PO (18:11)
[2020-05-28] MEDS ORDERED: STIOLTO RESPIMAT4 G1 INH (18:12)
[2020-05-28] MEDS ORDERED: DEXA4 PO (18:13)
[2020-05-28 18:30] LABS: Hematocrit 28.7 % (33.0-51.0); Hemoglobin 8.8 g/dL (11.5-16.0); Mean Corpuscular HGB 27.5 pg (26.0-34.0); Mean Corpuscular HGB Conc 30.7 g/dL (31.5-36.5); Mean Corpuscular Volume 90 fL (80-100); Mean Platelet Volume 9.7 fL (9.1-12.4); NRBC ABSOLUTE 0.15 K/mm3 (0.00-0.02); NRBC Auto 1.7 /100 WBC (0.0-0.2); Platelet Count 275 K/mm3 (150-400); RDW Coefficient Variation 17.8 % (11.7-14.2); RDW Standard Deviation 54.6 fL (35.1-46.3); White Blood Cell Count 8.88 K/mm3 (4.00-11.30)
[2020-05-28 18:49] LABS: Alanine Aminotransfer (ALT/SGP 19 U/L (12-78); Albumin, Blood 2.9 g/dL (3.4-5.0); Albumin/Globulin Ratio 0.8 (0.8-1.8); Alk Phos 95 U/L (50-136); Anion Gap 9 mmol/L (6-16); Aspartate Aminotrans (AST/SGOT 38 U/L (12-37); Bilirubin, Total 0.2 mg/dL (0.1-1.0); Blood Urea Nitrogen 9 mg/dL (8-24); CO2, Blood 21 mmol/L (21-32); Calcium, Blood 8.6 mg/dL (8.5-10.1); Chloride, Blood 109 mmol/L (98-108); Creatinine, Blood 0.41 mg/dL (0.40-1.00); Globulin, Blood 3.6 g/dL (2.2-4.0); Glomerular Filtration Rate >60 (60-); Glucose, Blood 99 mg/dL (70-99); Potassium, Blood 3.4 mmol/L (3.5-5.5); Sodium, Blood 139 mmol/L (136-145); Total Protein, Blood 6.5 g/dL (6.4-8.2); Troponin I <0.015 ng/mL (0.000-0.040)
[2020-05-28 18:50] LABS: BAND PERCENT MAN 2 % (0-8); BASOPHILS PERCENT MAN 0 % (0-2); EOSINOPHILS ABSOLUTE MAN 0.08 K/mm3 (0.00-0.68); EOSINOPHILS PERCENT MAN 1 % (0-6); LYMPHOCYTES ABSOLUTE MAN 1.59 K/mm3 (0.84-5.20); LYMPHOCYTES PERCENT MAN 18 % (21-46); METAMYELOCYTE ABSOLUTE MAN 0.08 K/mm3 (0.00-0.00); METAMYELOCYTE PERCENT MAN 1 % (0-0); MONOCYTES ABSOLUTE MAN 0.71 K/mm3 (0.16-1.47); MONOCYTES PERCENT MAN 8 % (4-13); MYELOCYTE ABSOLUTE MAN 0.08 K/mm3 (0.00-0.00); MYELOCYTE PERCENT MAN 1 % (0-0); SEG NEUTROPHILS PERCENT MAN 69 % (41-73); TOTAL CELLS COUNTED 100
== END 2020-05-28 20:21 | disposition home or self-care (01) ==
LOC: ER 17:43
PROVIDERS: Physician Assistant
DX: R07.9 Chest pain, unspecified (principal); I25.2 Old myocardial infarction; J44.9 Chronic obstructive pulmonary disease, unspecified; I10 Essential (primary) hypertension; I25.810 Atherosclerosis of coronary artery bypass graft(s) without angina pectoris; Z95.1 Presence of aortocoronary bypass graft; Z79.82 Long term (current) use of aspirin; Z79.02 Long term (current) use of antithrombotics/antiplatelets; Z79.899 Other long term (current) drug therapy; Z88.5 Allergy status to narcotic agent
CPT/HCPCS: 36415; 71046; 80053; 83880; 84484; 85025; 93005; 93010; 99285-25

== ENCOUNTER 2021-07-05 14:24 | Inpatient (IN) | payer MEDICARE, OTHER ==
[~2021-07-05] VITALS: Ht 165.1 cm; Wt 56.0 kg
[~2021-07-05 14:24] MED LIST changes: +ATENOLOL25 MG PO; +ATORVASTATIN CA20 MG PO; +CYMBALTA60 M1 PO; +DEXA4 PO; +DULOXETINE HCL60 M1 PO; +LEVOFLOXACIN PO; +OXYC10TA19 PO; +STIOLTO RESPIMAT4 G1 INH; +ZYPREXA2.5 MG PO
[2021-07-05 15:33] LABS: BASOPHILS ABSOLUTE AUTO 0.05 K/mm3 (0.00-0.23); BASOPHILS PERCENT AUTO 1 % (0-2); EOSINOPHILS ABSOLUTE AUTO 0.03 K/mm3 (0.00-0.68); EOSINOPHILS PERCENT AUTO 0 % (0-6); Hemoglobin 11.5 g/dL (11.5-16.0); IMMATURE GRAN ABSOLUTE AUTO 0.05 K/mm3 (0.00-0.10); IMMATURE GRAN PERCENT AUTO 1 % (0-1); LYMPHOCYTES ABSOLUTE AUTO 1.15 K/mm3 (0.84-5.20); LYMPHOCYTES PERCENT AUTO 11 % (21-46); MONOCYTES PERCENT AUTO 13 % (4-13); Mean Corpuscular HGB 30.8 pg (26.0-34.0); Mean Corpuscular HGB Conc 31.1 g/dL (31.5-36.5); Mean Corpuscular Volume 99 fL (80-100); Mean Platelet Volume 10.7 fL (9.1-12.4); NEUTROPHILS ABSOLUTE AUTO 7.48 K/mm3 (1.96-9.15); NEUTROPHILS PERCENT AUTO 74 % (41-73); Platelet Count 182 K/mm3 (150-400); RDW Coefficient Variation 14.9 % (11.7-14.2); RDW Standard Deviation 54.8 fL (35.1-46.3); Red Blood Cell Count 3.73 M/mm3 (3.80-5.20); White Blood Cell Count 10.06 K/mm3 (4.00-11.30)
[2021-07-05 15:59] LABS: Influenza A, PCR NEGATIVE (NEGATIVE); Influenza B, PCR NEGATIVE (NEGATIVE); Resp Syncytial Virus, PCR NEGATIVE (NEGATIVE); SARS-Cov-2 (COVID-19) PCR, MMC NEGATIVE (NEGATIVE)
[2021-07-05 16:07] LABS: Alanine Aminotransfer (ALT/SGP 20 U/L (12-78); Albumin, Blood 2.3 g/dL (3.4-5.0); Albumin/Globulin Ratio 0.5 (0.8-1.8); Alk Phos 383 U/L (50-136); Anion Gap 7 mmol/L (6-16); Aspartate Aminotrans (AST/SGOT 28 U/L (12-37); Bilirubin, Total 0.7 mg/dL (0.1-1.0); Blood Urea Nitrogen 16 mg/dL (8-24); Bun/Creatinine Ratio 24.4 (12.0-20.0); CO2, Blood 27 mmol/L (21-32); Calcium, Blood 8.9 mg/dL (8.5-10.1); Chloride, Blood 106 mmol/L (98-108); Creatinine, Blood 0.66 mg/dL (0.40-1.00); Globulin, Blood 4.4 g/dL (2.2-4.0); Glomerular Filtration Rate >60 (60-); Glucose, Blood 116 mg/dL (70-99); Potassium, Blood 3.8 mmol/L (3.5-5.5); Sodium, Blood 140 mmol/L (136-145); Total Protein, Blood 6.7 g/dL (6.4-8.2)
--- NOTE | 2021-07-05 22:34 | NUR ---
TRANSFER NOTE REPORT FROM JUAN LOVETT RN. PT TO FLOOR BY RICK AND IS SLID OVER TO THE BED. PT OXYGEN TRANSFERRED TO THE WALL AT 3L. PT ORIENTED TO ROOM AND CALL LIGHT.
[2021-07-05] MEDS ORDERED: Ventolin/Proventil INH (23:57)
[2021-07-05] MEDS ORDERED: AMLO10 PO (23:59)
--- NOTE | 2021-07-06 00:22 | NUR ---
PER PT REQUEST, PT DAUGHTER NOTIFIED THAT SHE IS ADMITTED TO THE HOSPITAL. DAUGHTER WILL CALL TOMORROW TO SPEAK WITH HER.
[2021-07-06 02:02] LABS: Anion Gap 6 mmol/L (6-16); Blood Urea Nitrogen 17 mg/dL (8-24); Bun/Creatinine Ratio 28.5 (12.0-20.0); CO2, Blood 30 mmol/L (21-32); Chloride, Blood 104 mmol/L (98-108); Glomerular Filtration Rate >60 (60-); Glucose, Blood 182 mg/dL (70-99); Potassium, Blood 3.6 mmol/L (3.5-5.5); Sodium, Blood 140 mmol/L (136-145)
--- NOTE | 2021-07-06 05:44 | NUR ---
SOLAR PROJECT MANAGER SUMMARY PT WAS ADMITTED LAST NIGHT FOR CHF EXACERBATION. SHE IS FULL CODE. PT IS BEING DIURESED WITH IV LASIX. SHE REPORTS THAT THIS IS A NEW DIAGNOSIS FOR HER. PT HAS A PRODUCTIVE COUGH THAT MAKES HER VOMIT. MEDICATED X1 WITH IV ZOFRAN AND X1 WITH COUGH SYRUP. SHE HAS A HISTORY OF CHRONIC PAIN SECONDARY TO HER STAGE 4 OVARIAN CANCER AND WAS MEDICATED X1 FOR PAIN. PT HAVING DIFFICULTY SLEEPING. SHE IS ON 3L NC AT NIGHT - 2L AT BASELINE. LUNGS ARE DIMINISHED WITH RHONCHI THROUGHOUT, IMPROVED SLIGHTLY WITH BREATHING TX. PT IS ALERT AND ORIENTED X3. VERY PLEASANT.
--- NOTE | 2021-07-06 18:34 | NUR ---
Review of pt needs with nursing and strategies of fluid balance. spoke with pt daughter for support. Daughter will discuss code status with mother.
--- NOTE | 2021-07-06 18:51 | NUR ---
SHIFT SUMMARY PT HAS GONE TODAY FOR A CT SCAN AND RECIEVED AND ECHO. SHE HAS EXPRESSED ANXIETY ABOUT PAIN MEDICATION NOT MEETING HER NEEDS AND A FEAR THAT HER TESTING WOULD REVEAL THAT SHE WAS "CLOSE TO DYING." SHE HAD A RUN OF AFIB THIS MMORNING REACHING A HR HIGH 190 AND SHE FELT DIZZY WHEN GETTING UP TO USE THE COMMODE. THIS AND HER COUGH CAUSED TO HAVE SOME NAUSEA THAT WAS RESOLVED WITH MEDICATING PER EMAR. WILL CONTINUE TO MONITOR.
--- NOTE | 2021-07-07 05:16 | NUR ---
PATIENT VERY UNCOMFORTABLE IN THE EVENING WITH HARSH DRY COUGH EACH TIME SHE WOULD CHANGE POSITION SLIGHTLY. ALSO EACH COUGH WOULD CAUSE HER BACK TO CRAMP EVEN WORSE. TESSALON PEARLE AND ROBAXIN GIVEN WITH HS MEDS FOR RELIEF. WHEN THIS RN WENT IN LATE IN THE EVENING, THE PATIENT WAS STILL QUITE COMFORTABLE AND EASY TO FALL BACK TO SLEEP. CHERRIE STATES THAT AT HOME, HER ONCOLOGIST HAS PRESCRIBED HER ORAL DILAUDED THAT "WORKS BETTER FOR HER THAT THE HYDROCODONE" SHE HAS BEEN RECEIVING WHILE HERE. SHE WAS NOT SURE WHETHER SHE HAD EVER TAKEN ROBAXIN BEFORE, BUT IT WAS A GOOD MIX FOR HER LAST NIGHT TO GET HER COMFORTABLE ENOUGH TO GET SOME SLEEP
[2021-07-07 10:07] LABS: Influenza A, PCR NEGATIVE (NEGATIVE); Influenza B, PCR NEGATIVE (NEGATIVE); Resp Syncytial Virus, PCR NEGATIVE (NEGATIVE); SARS-Cov-2 (COVID-19) PCR, MMC NEGATIVE (NEGATIVE)
--- NOTE | 2021-07-07 18:05 | NUR ---
SHIFT SUMMARY PT IS RESTING BED. SHE HAS HAD A MORE PEACEFUL NIGHT, NO AFIB OR PVCS. HER PAIN IS BETTER CONTROLLED TODAY AND SHE WAS ABLE TO WORK WITH PT AND OT. DAUGHTERS WERE GIVEN AND UPDATE TODAY. IS HOPEFUL TO DISCHARGE TO SNF FOR REHABILITATION SOON. WILL CONTINUE TO MONITOR.
--- NOTE | 2021-07-08 02:58 | NUR ---
Her cough makes her unconfortable, increase her pain, she stated. Medicated per eMAR with tessalon that help a little. No acute events noted. WE will continue to monitor patient.
--- NOTE | 2021-07-08 18:16 | NUR ---
SHIFT SUMMARY PT IS STILL COUGHING, MEDICATED PER MAR FOR COUGH. SHE HAS DEALT BETTER WITH HER PAIN TODAY. STILL ON 3L OF O2 AT 94%. SHE HAS BEEN MOVING FROM THE BED TO THE BEDSIDE COMMODE AND SITTING AT THE SIDE OF THE BED. PROGRESS HAS BEEN MADE TOWARDS HER TRANSFER TO A SNF FOR REHABILITATION.HER DAUGHTERS WERE UPDATED TODAY. WILL CONTINUE TO MONITOR.
[2021-07-09 10:58] LABS: Anion Gap 4 mmol/L (6-16); Blood Urea Nitrogen 22 mg/dL (8-24); Bun/Creatinine Ratio 36.1 (12.0-20.0); CO2, Blood 33 mmol/L (21-32); Calcium, Blood 8.6 mg/dL (8.5-10.1); Chloride, Blood 104 mmol/L (98-108); Creatinine, Blood 0.61 mg/dL (0.40-1.00); Glomerular Filtration Rate >60 (60-); Glucose, Blood 146 mg/dL (70-99); Potassium, Blood 3.5 mmol/L (3.5-5.5); Sodium, Blood 141 mmol/L (136-145)
--- NOTE | 2021-07-09 18:30 | NUR ---
Shift Summary A/Ox4, pleasant/cooperative. Up independently in room. Medicated for HESS x 2 per EMAR with adequate results. Coarse lung sounds with wheezes and rhonchi. Continues to have productive cough, medicate per EMAR with good effect. 1.5L O2 via NC. Calls appropriately for needs. Updated daughter Solange per patient's request.
--- NOTE | 2021-07-10 04:31 | NUR ---
SHIFT SUMMARY: PT CONTINUES TO HAVE COARSE, HACKING COUGH. MEDICATED WITH COUGH SYRUP AND TESSALON FOR COUGH. ROBAXIN GIVEN FOR CHRONIC MUSCLE PAIN PER PT REQUEST. ON 2L VIA NC. PT REPORTS BEING ABLE TO WALK INTO THE BATHROOM AND BACK TO BED WITH A LITTLE LESS SOB. SHE FEELS LIKE SHE'S GETTING BETTER. NO ACUTE CHANGES. WILL CONTINUE TO PROVIDE CARE UNTIL SHIFT REPORT.
--- NOTE | 2021-07-10 17:29 | NUR ---
PATIENT IS AWAKE,ALERT AND ORIENTED TIME THREE. PAIN CONTROL. PATIENT ATE 100% OF LUNCH AND BREAKFAST. PATIENT IS BEING MONITOR ON STRICT INTAKE AND OUTPUT. PATIENT IS WAITING ON PLACEMENT FOR DISCHARGE PER .
--- NOTE | 2021-07-11 06:56 | NUR ---
SHIFT SUMMARY: PATIENT VOMITED 200MLS OF PINK EMESIS, DOES NOT REMEMBER EATING OR DRINKING ANYTHING RED. ZOFRAN WAS GIVEN WITH FAIR EFFECT. NAUSEA DID RETURN AND IT WAS TO EARLY TO GIVEN ZOFRAN. IAN VEGETABLE THINNER WAS NOTIFIED AND ODER TO CHANGE ZOFRAN TO Q4H PRN WAS OBTAINED AND MED WAS GIVEN WITH GOOD EFFECT. CONTINUES TO REPORT HEADACHE AND BACK PAIN. PO DILAUDID WAS GIVEN WITH GOOD EFFECT.
--- NOTE | 2021-07-11 11:45 | NUR ---
Palliative Care visit - Pt just waking after morning rest. She woke this am with N/V and was medicated with zofran. She states that was fairly effective. Pt also received medication for HESS and chronic pain and states HESS is better now. She and CM confirmed plan for [facility] placement on discharge and are working on some longer term care giving or community placement if possible also. Pt is hopeful for that. She is in active treatment for her cancer with Dr Florian. She gave permission for me to contact oncology office to update on current status and plans. Office person cancelled her appointment for this week and asked that I have pt call them to reschedule when she is nearing d/c from [facility]. I had already advised pt to call oncologist when she was at the end of her rehab stay. Pt appears frail but it good spirits this am, sl anxious appearing and fatigued. She did not express any other needs at this time. She did not demonstrate nonverbal indicators of pain during my visit.
--- NOTE | 2021-07-11 19:22 | NUR ---
SHIFT SUMMARY S/P ACUTE ON CHRONIC CHF, A/OX 4, VSS, TOLERATING PO, ABLE TO MAKE NEEDS KNOWN. NO ACUTE EVENTS THIS SHIFT, PENDING PLACEMENT WHEN BED AVAILABLE, CALL LIGHT IN REACH, REPORT GIVEN TO ZHANNA ARIAS.
--- NOTE | 2021-07-12 18:38 | NUR ---
SHIFT SUMMARY; PATIENT IS READY FOR SNF DISCHARGE. CHOSE [facility] HOWEVER THEY HAVE REFUSED HER. MATEUS REFUSES [facility] SO [employer] HELPER RENEE MEHTA OUT OF AREA FOR THIS PATIENT SNF PLACEMENT. PATIENT REMAINS IN BED TODAY. REFUSED OT SHE WAS UPSET OVER NOT HAVING [facility] ACCEPT HER.
--- NOTE | 2021-07-13 05:32 | NUR ---
SHIFT SUMMARY Patient still voice being upset about the SNF of her choice and the rejection. Encourage patient that she will find another place and SW is working on it. She was able to sleep without events during the shift. Bed in low position, call light within reach. We are monitoring patient and report to the oncoming nurse.
[2021-07-13 15:14] LABS: Influenza A, PCR NEGATIVE (NEGATIVE); Influenza B, PCR NEGATIVE (NEGATIVE); Resp Syncytial Virus, PCR NEGATIVE (NEGATIVE); SARS-Cov-2 (COVID-19) PCR, MMC NEGATIVE (NEGATIVE)
--- NOTE | 2021-07-13 15:28 | NUR ---
DISCHARGE NOTE- PT DISCHARGED TO FACILITY. FAMILY CAME AND PICKED UP HER DIRTY CLOTHES, AND TOOK THEM HOME. PT WAS TAKEN VIA W/C TRANSPORT TO HER NEW FACILITY. COVID TEST NEGATIVE. IV DC'D PRIOR TO DISCHARGE, PT ON 2L O2 VIA NC AT THE TIME OF DISCHARGE. NO S&S OF DISTRESS NOTED AT THE TIME OF DISCHARGE. PT TRANSFERED WITH SBA TO THE W/C AT BEDSIDE W/O DIFFICULTY.
[2021-07-13] MEDS ORDERED: Methocarbamol500 MG PO (15:47)
[2021-07-13] MEDS ORDERED: FURO20 PO (15:48)
--- NOTE | 2021-07-13 16:51 | NUR ---
CALLED REPORT TO [facility] ALICIA DELACRUZ. NO FURTHER QUESTIONS AT THE TIME OF REPORT, PROVIDED CONTACT INFO SHOULD QUESTIONS ARRISE. PT HAS ALREADY ARRIVED AT THE FACILITY AT THE TIME OF REPORT.
== END 2021-07-13 15:25 | DRG 291 ==
LOC: ER 14:24 → MEDS 22:39
PROVIDERS: Emergency Medicine; Family Medicine; Hospitalist; Nurse Practitioner Acute Care; Student in an Organized Health Care Education/Training Program; ADMIT Internal Medicine
DX: I11.0 Hypertensive heart disease with heart failure (principal); I50.23 Acute on chronic systolic (congestive) heart failure; J44.1 Chronic obstructive pulmonary disease with (acute) exacerbation; Z20.822 Contact with and (suspected) exposure to COVID-19; N20.0 Calculus of kidney; I25.10 Atherosclerotic heart disease of native coronary artery without angina pectoris; G43.909 Migraine, unspecified, not intractable, without status migrainosus; M54.9 Dorsalgia, unspecified; F17.200 Nicotine dependence, unspecified, uncomplicated; G89.29 Other chronic pain; Z95.1 Presence of aortocoronary bypass graft; I25.2 Old myocardial infarction; Z79.82 Long term (current) use of aspirin; Z79.899 Other long term (current) drug therapy; Z88.5 Allergy status to narcotic agent; Z90.89 Acquired absence of other organs; Z90.711 Acquired absence of uterus with remaining cervical stump; Z85.3 Personal history of malignant neoplasm of breast; Z79.02 Long term (current) use of antithrombotics/antiplatelets; Z85.43 Personal history of malignant neoplasm of ovary; Z98.890 Other specified postprocedural states; Z95.5 Presence of coronary angioplasty implant and graft
CPT/HCPCS: 0241U; 36415; 70470; 71045; 74177; 80048; 80053; 83880; 84484; 85025; 93005; 93010; 93306; 94640; 94760; 94762; 97110; 97116; 97162; 97166; 97530; 97535; 99285-25; A9270; J1650; J1940; J2405; J2930; J7512; Q9967

== ENCOUNTER 2022-01-21 16:54 | Observation (INO) | payer MEDICARE, OTHER ==
[~2022-01-21] VITALS: Ht 167.6 cm; Wt 61.4 kg
[~2022-01-21 16:54] MED LIST changes: +FURO20 PO; +FUROSEMIDE40 MG PO; +Methocarbamol500 MG PO; +Ventolin/Proventil INH
[2022-01-21] MEDS ORDERED: ATEN25 PO (17:21)
[2022-01-21] MEDS ORDERED: VENL150ER PO (17:22)
[2022-01-21] MEDS ORDERED: STIOLTO RESPIMAT4 G1 INH (17:24)
[2022-01-21] MEDS ORDERED: Methocarbamol500 MG PO (17:26)
[2022-01-21] MEDS ORDERED: Acetaminophen650 M1 PO (17:27)
[2022-01-21 17:30] LABS: BASOPHILS ABSOLUTE AUTO 0.04 K/mm3 (0.00-0.23); BASOPHILS PERCENT AUTO 0 % (0-2); EOSINOPHILS PERCENT AUTO 0 % (0-6); Hematocrit 30.3 % (33.0-51.0); Hemoglobin 9.3 g/dL (11.5-16.0); IMMATURE GRAN ABSOLUTE AUTO 0.13 K/mm3 (0.00-0.10); IMMATURE GRAN PERCENT AUTO 1 % (0-1); LYMPHOCYTES ABSOLUTE AUTO 0.57 K/mm3 (0.84-5.20); LYMPHOCYTES PERCENT AUTO 3 % (21-46); MONOCYTES ABSOLUTE AUTO 0.16 K/mm3 (0.16-1.47); MONOCYTES PERCENT AUTO 1 % (4-13); Mean Corpuscular HGB 33.2 pg (26.0-34.0); Mean Corpuscular HGB Conc 30.7 g/dL (31.5-36.5); Mean Corpuscular Volume 108 fL (80-100); NEUTROPHILS ABSOLUTE AUTO 16.08 K/mm3 (1.96-9.15); NEUTROPHILS PERCENT AUTO 95 % (41-73); Platelet Count 87 K/mm3 (150-400); RDW Coefficient Variation 23.6 % (11.7-14.2); RDW Standard Deviation 91.1 fL (35.1-46.3); White Blood Cell Count 16.98 K/mm3 (4.00-11.30)
[2022-01-21 17:38] LABS: Mean Platelet Volume 13.2 fL (9.1-12.4)
[2022-01-21 17:48] LABS: Albumin, Blood 2.9 g/dL (3.4-5.0); Albumin/Globulin Ratio 0.9 (0.8-1.8); Bilirubin, Total 1.3 mg/dL (0.1-1.0); Bun/Creatinine Ratio 57.4 (12.0-20.0); Calcium, Blood 9.5 mg/dL (8.5-10.1); Creatinine, Blood 0.42 mg/dL (0.40-1.00); Globulin, Blood 3.2 g/dL (2.2-4.0); Potassium, Blood 3.8 mmol/L (3.5-5.5); Total Protein, Blood 6.1 g/dL (6.4-8.2)
[2022-01-22 01:25] LABS: Source, Urine Clean Catch
[2022-01-22 01:42] LABS: Bilirubin, Urine Neg (Neg); Blood, Urine 3+ (Neg); Glucose Qualitative, Urine Neg (Neg); Ketones, Urine 1+ (Neg); Leukocyte Esterase, Urine 1+ (Neg); Nitrite, Urine Neg (Neg); Protein, Urine 4+ (Neg); Urobilinogen, Urine 1+ (Normal)
[2022-01-22 01:48] LABS: Appearance, Urine Hazy (Clear); Color, Urine Yellow (P-Yellow)
[2022-01-22 01:49] LABS: Bacteria Many /hpf; Red Blood Cells, Urine 0-2 /hpf (0-2); Squamous Epithelial Cells Few /hpf (Few)
--- NOTE | 2022-01-22 04:24 | NUR ---
ADMISSION: PATIENT IS RECIEVED FROM ER VIA STRETCHER. BP IS ELEVATED, PATIENT REPORTS GENERALIZED PAIN 8/10. LOSE NON PRO COUGH. BP IS ELEVATED. PATIENT IS ORIENTED TO ROOM AND CALL MARQUEZ. BED ALARM IS ON FOR SAFETY.
[2022-01-22 05:39] LABS: BASOPHILS ABSOLUTE AUTO 0.08 K/mm3 (0.00-0.23); BASOPHILS PERCENT AUTO 1 % (0-2); EOSINOPHILS PERCENT AUTO 0 % (0-6); Hematocrit 30.5 % (33.0-51.0); Hemoglobin 9.2 g/dL (11.5-16.0); IMMATURE GRAN ABSOLUTE AUTO 0.08 K/mm3 (0.00-0.10); IMMATURE GRAN PERCENT AUTO 1 % (0-1); LYMPHOCYTES PERCENT AUTO 10 % (21-46); MONOCYTES ABSOLUTE AUTO 0.16 K/mm3 (0.16-1.47); MONOCYTES PERCENT AUTO 1 % (4-13); Mean Corpuscular HGB 33.3 pg (26.0-34.0); Mean Corpuscular HGB Conc 30.2 g/dL (31.5-36.5); Mean Corpuscular Volume 111 fL (80-100); Mean Platelet Volume 12.8 fL (9.1-12.4); NEUTROPHILS PERCENT AUTO 88 % (41-73); Platelet Count 100 K/mm3 (150-400); RDW Standard Deviation 94.1 fL (35.1-46.3); Red Blood Cell Count 2.76 M/mm3 (3.80-5.20); White Blood Cell Count 15.62 K/mm3 (4.00-11.30)
[2022-01-22 06:08] LABS: Albumin, Blood 2.8 g/dL (3.4-5.0); Albumin/Globulin Ratio 0.8 (0.8-1.8); Bilirubin, Total 0.8 mg/dL (0.1-1.0); Calcium, Blood 8.8 mg/dL (8.5-10.1); Creatinine, Blood 0.49 mg/dL (0.40-1.00); Globulin, Blood 3.3 g/dL (2.2-4.0); Potassium, Blood 3.7 mmol/L (3.5-5.5); Total Protein, Blood 6.1 g/dL (6.4-8.2)
--- NOTE | 2022-01-22 07:30 | NUR ---
SHIFT SUMMARY: DR CASEY WAS CALLED AND UPDATED ON BP OF 161/96. ACTIVITY INTOLERANCE CAUSING DESATURATION. RESPIRATORY ASSESSMENT, INSPIRATORY AND EXPIRATORY WHEEZES IN UPPER LOBES AND CRACKLES IN THE BASES. LOOSE MOIST NON-PRO COUGH. ORDERS FOR LASIX IV AND SAAB PLACEMENT. GIVEN AM BP MEDS NOW. PLACE SAAB CATH AND IV LASIX. IV DILAUDID WAS GIVEN FOR GENERALIZED PAIN. PATIENT TOLERATED SAAB PLACEMENT WELL. BED ALARM IS ON FOR SAFETY. PATIENT LATER DID SET THE BED ALARM OFF AND IS CONFUSED. SAYS SHE HAS TO URINATE, SAAB HAS PUT OUT 700 MLS AND IS STILL PATENT.
[2022-01-22 08:18] LABS: Source, Urine Foley catheter
[2022-01-22 08:24] LABS: Bilirubin, Urine Neg (Neg); Blood, Urine 1+ (Neg); Glucose Qualitative, Urine Neg (Neg); Ketones, Urine Neg (Neg); Leukocyte Esterase, Urine Neg (Neg); Nitrite, Urine Neg (Neg); Protein, Urine 3+ (Neg); Urobilinogen, Urine NORM (Normal); pH, Urine 6.5 (5.0-8.0)
[2022-01-22 08:50] LABS: Appearance, Urine Hazy (Clear); Color, Urine Yellow (P-Yellow)
[2022-01-22 08:53] LABS: Renal Epithelial Rare /hpf (0-Rare); Squamous Epithelial Cells Few /hpf (Few)
[2022-01-22 08:54] LABS: Bacteria Rare /hpf
--- NOTE | 2022-01-22 18:40 | NUR ---
PATIENT HAS BEEN QUIETLY RESTING MOST OF THIS SHIFT. SHE HAS PAIN IN THE ABDOMEN PROBABLY RELATED TO OVARIAN CANCER. SHE HAD CHEMO LAST SUN, AND ACCORDING TO HER DAUGHTER AYANNA, SHE GOES [place] AFTER CHEMO. PATIENT RECIEVED DILAUDED AT 1649 FOR PAIN. SHE HAD A LARGE BM THIS SHIFT. NO BLOOD PRESSURES CAN BE DONE ON RIGHT SIDE, HISTORY OF BREAST CANCER. PATIENT IS ABLE TO GET UP AND USE THE BEDSIDE COMMODE. SHE IS ON OXYGEN AT 2 LITERS. SAAB IS PATENT. PATIENT IS ORIENTATED, BUT AFTER PAIN MEDICATION, GROGGY. AT THIS TIME, SHE IS RESTING AND COMFORTABLE.
--- NOTE | 2022-01-23 07:36 | NUR ---
SHIFT SUMMARY: PATIENT IS A&OX3, VSS, CONTINUES TO REPORT ABD. PAIN 7-01/11. IV DILAUDID WAS GIVEN X2 WITH GOOD EFFECT. SAAB IS PATENT WITH A CLEAR YELLOW URINE. PATIENT NOW REPORTS TAKING MIRALAX DAILY FOR CONSTIPATION. PATIENT HAD A LARGE BM YESTERDAY BUT IT WAS VERY HARD LARGE FORMED BM. DR GARZA WAS NOTIFIED AND ORDER FOR MIRALAX WAS OBTAINED.
--- NOTE | 2022-01-23 17:03 | NUR ---
SHIFT SUMMARY PT IS RESTING IN BED. PAIN MEDICATIONS CHANGE TO TID SCHEDULED AND THIS HAS IMPROVED HER PAIN. ABX WAS ALSO CHANGE WITH HER DIURETIC. PT HAS BEEN COOPERATIVE WITH CARE. STILL DRAINING LIGHT TO CLEAR URINE FROM HER SAAB. CRACKLED IN BASES. HARSH MOUST UNPRODUCTIVE COUGH WITH PRNS FOR MANAGEMENT. DR AND PT FOR HER TO DC BACK TO [facility] TOMORROW. RN AT [facility] GIVEN UPDATE. BED IN LOWEST POSITION AND CALL LIGHT IN REACH.
--- NOTE | 2022-01-23 23:32 | NUR ---
CARDIAC: PATIENT HAS POSSIBLEW ST ELEVATIONS, SEE CARDIAC ASSESSMENT. VSS, NO REPORTS OF CHEST PAIN. DR MURPHY WAS NOTIFIED. NO NEW ORDERS AT THIS TIME. CONTINUE TO MONITOR.
[2022-01-24 05:09] LABS: BASOPHILS ABSOLUTE AUTO 0.06 K/mm3 (0.00-0.23); BASOPHILS PERCENT AUTO 1 % (0-2); EOSINOPHILS PERCENT AUTO 0 % (0-6); Hematocrit 25.9 % (33.0-51.0); Hemoglobin 7.9 g/dL (11.5-16.0); IMMATURE GRAN ABSOLUTE AUTO 0.05 K/mm3 (0.00-0.10); IMMATURE GRAN PERCENT AUTO 1 % (0-1); LYMPHOCYTES PERCENT AUTO 26 % (21-46); MONOCYTES ABSOLUTE AUTO 0.14 K/mm3 (0.16-1.47); MONOCYTES PERCENT AUTO 2 % (4-13); Mean Corpuscular HGB 33.3 pg (26.0-34.0); Mean Corpuscular HGB Conc 30.5 g/dL (31.5-36.5); Mean Corpuscular Volume 109 fL (80-100); Mean Platelet Volume 11.5 fL (9.1-12.4); NEUTROPHILS ABSOLUTE AUTO 4.01 K/mm3 (1.96-9.15); NEUTROPHILS PERCENT AUTO 70 % (41-73); RDW Coefficient Variation 23.4 % (11.7-14.2); RDW Standard Deviation 90.6 fL (35.1-46.3); Red Blood Cell Count 2.37 M/mm3 (3.80-5.20); White Blood Cell Count 5.76 K/mm3 (4.00-11.30)
[2022-01-24 05:22] LABS: Platelet Count 65 K/mm3 (150-400)
[2022-01-24 05:56] LABS: Bun/Creatinine Ratio 46.5 (12.0-20.0); Calcium, Blood 8.1 mg/dL (8.5-10.1); Creatinine, Blood 0.43 mg/dL (0.40-1.00); Magnesium, Blood 1.1 mg/dL (1.6-2.4); Potassium, Blood 3.3 mmol/L (3.5-5.5)
--- NOTE | 2022-01-24 08:08 | NUR ---
SHIFT SUMMARY: NO ACUTE CHANGES, VSS. PATIENT REPORTS BETTER PAINCONTROL WITH SCHEDULED MORPHINE. LOOSE NON-PRO COUGH OBSERVED. PATIENT REQUESTED COUGH MED AND THROAT LOGEN.X1 WITH GOOD EFFECT.
--- NOTE | 2022-01-24 17:26 | NUR ---
SHIFT SUMMARY PT HAS BEEN COMFORTABLE TODAY. SHE RECIEVED SOME MAG HER LEVELS WERE LOW. SHE IS CONTINUEING TO DIURES. SHE ASKED FOR HER SAAB TO BE REMOVED IST WAS UNCOMFORTABLE AND SHE WANTED TO GET UP AND USE THE COMMODE. PT HAS HAD URINE OUTPUT SINCE SAAB REMOVAL. HOPEFUL TO RELEASE TOMORROW. IN ROM AND UPDATED. BED IN LOWEST POSITION AND CALL LIGHT IN REACH
--- NOTE | 2022-01-25 05:16 | NUR ---
SHIFT SUMMARY NO ACUTE CHANGES TO PT CONDITION. PT COMPLAINS OF COUGH THROUGHOUT NIGHT. PT MEDICATED FOR COUGH PER EMAR. PT ONE PERSON ASSIST TO BEDSIDE COMMODE. PT HAS NO COMPLAINTS AT THIS TIME. CALL LIGHT WITHIN REACH.
[2022-01-25 05:27] LABS: Hematocrit 25.2 % (33.0-51.0); Hemoglobin 7.8 g/dL (11.5-16.0); Mean Corpuscular HGB 33.6 pg (26.0-34.0); Mean Corpuscular Volume 109 fL (80-100); Mean Platelet Volume 12.7 fL (9.1-12.4); Platelet Count 63 K/mm3 (150-400); RDW Coefficient Variation 22.9 % (11.7-14.2); Red Blood Cell Count 2.32 M/mm3 (3.80-5.20); White Blood Cell Count 5.46 K/mm3 (4.00-11.30)
[2022-01-25 05:51] LABS: Albumin, Blood 2.1 g/dL (3.4-5.0); Albumin/Globulin Ratio 0.8 (0.8-1.8); Bilirubin, Total 0.3 mg/dL (0.1-1.0); Bun/Creatinine Ratio 41.9 (12.0-20.0); Calcium, Blood 8.1 mg/dL (8.5-10.1); Creatinine, Blood 0.38 mg/dL (0.40-1.00); Globulin, Blood 2.6 g/dL (2.2-4.0); Magnesium, Blood 1.2 mg/dL (1.6-2.4); Potassium, Blood 3.7 mmol/L (3.5-5.5); Total Protein, Blood 4.7 g/dL (6.4-8.2)
[2022-01-25] MEDS ORDERED: MAGNESIUM OXID500 MG PO (10:22)
[2022-01-25] MEDS ORDERED: POTA10T PO (10:22)
[2022-01-25] MEDS ORDERED: LEVFLO500 PO (10:22)
== END 2022-01-25 15:01 | disposition home or self-care (01) ==
LOC: ER 16:54 → MEDS 16:55 → ER 01-22 02:21 → MEDS 01-22 02:21 → ER 01-23 15:20 → MEDS 01-23 15:20
PROVIDERS: Family Medicine; Internal Medicine; Student in an Organized Health Care Education/Training Program; ADMIT Internal Medicine
DX: I11.0 Hypertensive heart disease with heart failure (principal); I50.23 Acute on chronic systolic (congestive) heart failure; R65.10 Systemic inflammatory response syndrome (SIRS) of non-infectious origin without acute organ dysfunction; N39.0 Urinary tract infection, site not specified; D69.6 Thrombocytopenia, unspecified; G89.29 Other chronic pain; E43 Unspecified severe protein-calorie malnutrition; C56.9 Malignant neoplasm of unspecified ovary; I25.10 Atherosclerotic heart disease of native coronary artery without angina pectoris; J44.9 Chronic obstructive pulmonary disease, unspecified; I25.2 Old myocardial infarction; F17.210 Nicotine dependence, cigarettes, uncomplicated; Z99.81 Dependence on supplemental oxygen; Z79.02 Long term (current) use of antithrombotics/antiplatelets; Z79.899 Other long term (current) drug therapy; Z79.82 Long term (current) use of aspirin; Z88.5 Allergy status to narcotic agent; Z95.1 Presence of aortocoronary bypass graft; Z95.5 Presence of coronary angioplasty implant and graft; Z68.21 Body mass index [BMI] 21.0-21.9, adult
CPT/HCPCS: 36415; 51798; 71260; 74022; 74177; 80048; 80053; 81001; 82947; 83605; 83735; 83880; 85025; 85027; 87077; 87086; 87186; 93005; 93010; 94640; 94664; 94760; 96365-59; 96366; 96366-59; 96367; 96375; 96375-59; 96376; 96376-59; 99285-25; A9270; G0378; J0696; J1170; J1885; J1940; J2405; J2550; J3475; J7030; J7060; Q9967